=== PATIENT | female | born 1950 | race Caucasian/White ===

== ENCOUNTER 2016-08-01 10:25 | Inpatient (IN) | payer MEDICARE ==
[~2016-08-01] VITALS: Ht 160 cm; Wt 59.0 kg
[~2016-08-01 10:25] MED LIST: ATIVAN1 MG PO; BACLOFEN10 MG PO; BAYER CHEWABLE81 MG PO; BUPROPION HCL150 M1 PO; CATAPRES0.1 MG PO; COZAAR100 MG PO; EXCEDRIN CAPLET1 TAB PO; GABAPENTIN100 MG PO; GLIPIZIDE10 MG PO; GLUCERNA 1 CAL237 ML PO; GUAIFENESI100 MG/5 M PO; HYDROCODONE-APA1 TAB PO; IBUPROFEN100 MG/5 M PO; LACTINEX GRANUL1 PCK PEG; LANTUS INSULIN10 ML SC; MAXIPIME 1 GM/D51 G1 IV; METOPROLOL TART50 MG PO; MILK OF MAGNESI30 ML PO; MIRALAX17 GM PO; MUCINEX600 MG PO; PREDNISONE1 MG PO; VIBRAMYCIN 100100 M1 IV; VITAMIN D31000 UNI2 PO; ZOFRAN4 MG PO
[2016-08-01 11:28] LABS: BASOPHILS 0.2 % (0.0-2.0); EOSINOPHILS 0.2 % (0-7); HEMATOCRIT 40.5 % (36.0-48.0); HEMOGLOBIN 12.6 g/dL (12-16); IMMATURE GRANULOCYTES 0.3 % (0-5); LYMPHOCYTES 6.2 % (15-50); MCH 29.1 pg (26.0-34.0); MCHC 31.1 g/dL (31.0-37.0); MCV 93.5 fL (80.0-100.0); MONOCYTES 4.1 % (2-11); PLATELET COUNT 106 10x3/uL (130-400); RBC 4.33 10x6/uL (4.00-5.40); RDW 15.1 % (11.5-14.5); WBC 16.7 10x3/uL (4.8-10.8)
[2016-08-01 11:41] LABS: ALBUMIN 3.4 g/dL (3.4-5.0); ALKALINE PHOSPHATASE 72 U/L (46-116); ALT (SGPT) 23 U/L (10-68); BILIRUBIN - TOTAL 0.58 mg/dL (0.2-1.3); CALC OSMOLALITY 284 mosm/kg (275-300); CALCIUM 9.2 mg/dL (8.5-10.1); CARBON DIOXIDE 31.6 mmol/L (21.0-32.0); CHLORIDE - SERUM 102 mmol/L (98-107); CREATININE - SERUM 0.6 mg/dL (0.6-1.3); POTASSIUM - SERUM 3.7 mmol/L (3.5-5.1); PROTEIN - SERUM 6.9 g/dL (6.4-8.2); SODIUM 141 mmol/L (136-145); UREA NITROGEN 15 mg/dL (7-18); eGFR NON AFRICAN AMERICAN > 90 mL/min (90-120)
[2016-08-01 11:43] LABS: GLUCOSE 157 mg/dL (74-106); MAGNESIUM - SERUM 2.2 mg/dL (1.8-2.4)
[2016-08-01 11:57] LABS: APPEARANCE CLOUDY (CLEAR); BACTERIA MODERATE /hpf (NONE SEEN); BILIRUBIN NEGATIVE (NEGATIVE); COLOR YELLOW (YELLOW); GLUCOSE NEGATIVE (NEGATIVE); KETONE NEGATIVE (NEGATIVE); LEUKOCYTE ESTERASE TRACE (NEGATIVE); MUCUS <1+ /lpf (NONE SEEN); NITRITE POSITIVE (NEGATIVE); PROTEIN NEGATIVE (NEGATIVE); RED CELLS - URINE >50 /hpf (0-5); UROBILINOGEN NORMAL (NORMAL)
[2016-08-01 12:12] LABS: UDS - AMPHET NEGATIVE QUAL (NEGATIVE); UDS - BARB NEGATIVE QUAL (NEGATIVE); UDS - BENZO NEGATIVE QUAL (NEGATIVE); UDS - COCAINE NEGATIVE QUAL (NEGATIVE); UDS - METH NEGATIVE QUAL (NEGATIVE); UDS - OPIATE POSITIVE QUAL (NEGATIVE); UDS - PCP NEGATIVE QUAL (NEGATIVE); UDS - THC NEGATIVE QUAL (NEGATIVE)
[2016-08-01 16:27] VITALS: BP 116/67
--- NOTE | 2016-08-01 20:05 | NUR ---
RECIEVED PT LYING IN BED AWAKE, IV TO R WRIST INFILTRATED, DC'D WITH CATH INTACT, SISTER IN ROOM, CL IN REACH, DOOR OPEN FOR EASY VIEWING, WILL MONITOR
[2016-08-01] MEDS ORDERED: FEXOFENADINE H180 MG PO (20:32)
[2016-08-01] MEDS ORDERED: MIRALAX17 GM PO (20:34)
[2016-08-01] MEDS ORDERED: [UNRECOGNIZED DRUG - OTHER] PO (20:35)
[2016-08-01] MEDS ORDERED: [UNRECOGNIZED DRUG - OTHER] (20:36)
[2016-08-01] MEDS ORDERED: SALT (20:37)
[2016-08-01] MEDS ORDERED: LANTUS SOL100 UNIT/1 SQ (20:39)
[2016-08-01] MEDS ORDERED: DANTRIUM50 MG PO (20:42)
[2016-08-01] MEDS ORDERED: METOPROLOL TART50 MG PO (20:43)
[2016-08-01] MEDS ORDERED: HYDROCODONE-APA1 TAB PEG (20:47)
--- NOTE | 2016-08-01 21:32 | NUR ---
INSULING HELD PER SLIDING SCALE FOR BS OF 107, 22 G IV SITED IN L HAND X1 ATTEMPT, YONG WELL, CL IN REACH
--- NOTE | 2016-08-01 23:33 | NUR ---
PRN PAIN MED GIVEN PER MAR VIA PEG, YONG WELL, DENIES FURTHER NEEDS, CL IN REACH
--- NOTE | 2016-08-02 03:15 | NUR ---
RESTING WITH EYES CLOSED, RESP WITH EASE, NO ACUTE DISTRESS NOTED, SAFETY PRECAUTIONS IN PLACE, CL IN REACH
[2016-08-02 04:00] VITALS: BP 179/77
[2016-08-02 04:36] LABS: BASOPHILS 0.2 % (0.0-2.0); EOSINOPHILS 0.4 % (0-7); HEMATOCRIT 38.3 % (36.0-48.0); IMMATURE GRANULOCYTES 0.3 % (0-5); LYMPHOCYTES 11.4 % (15-50); MCH 29.3 pg (26.0-34.0); MCHC 31.3 g/dL (31.0-37.0); MCV 93.4 fL (80.0-100.0); MONOCYTES 10.1 % (2-11); NEUTROPHILS 77.6 % (40-80); PLATELET COUNT 117 10x3/uL (130-400); RDW 15.5 % (11.5-14.5); WBC 14.1 10x3/uL (4.8-10.8)
[2016-08-02 04:48] LABS: CALC OSMOLALITY 282 mosm/kg (275-300); CALCIUM 8.9 mg/dL (8.5-10.1); CARBON DIOXIDE 27.6 mmol/L (21.0-32.0); CHLORIDE - SERUM 103 mmol/L (98-107); CREATININE - SERUM 0.5 mg/dL (0.6-1.3); POTASSIUM - SERUM 3.5 mmol/L (3.5-5.1); SODIUM 142 mmol/L (136-145); UREA NITROGEN 13 mg/dL (7-18); eGFR NON AFRICAN AMERICAN > 90 mL/min (90-120)
[2016-08-02 04:56] LABS: GLUCOSE 104 mg/dL (74-106)
--- NOTE | 2016-08-02 07:40 | NUR ---
RECIEVED PT DURING WALKING ROUNDS. PT RESTING COMFORTABLY IN BED WITH NO COMPLAINTS OF PAIN OR DISCOMFORT AT THIS TIME. COMMUNICATIED WITH PT THROUGH LETTER BOARD. ASSESSMENT DONE PER FLOWSHEET. BED IN LOW POSITION AND CALL LIGHT WITHIN REACH. FAMILY AT BEDSIDE. WILL CONTINUE TO [facility].
--- NOTE | 2016-08-02 09:08 | NUR ---
POTASSIUM REPLACEMENT THERAPY GIVEN AT THIS TIME PER PROTOCOL. POTASSIUM SERUM REDRAW ORDERED AT THIS TIME.
[2016-08-02 10:20] VITALS: BP 156/76
--- NOTE | 2016-08-02 12:40 | NUR ---
SCD'S PLACED ON PT AT THIS TIME. FUNCTIONING PROPERLY.
[2016-08-02 13:50] VITALS: BP 183/87
[2016-08-02 14:33] VITALS: Ht 160 cm; Wt 59.0 kg
--- NOTE | 2016-08-02 14:58 | NUR ---
Patient Name: ZAC MONSIVAIS Admission Status: ER Accout number: [id number] Admission Date: 08-01-2016 : 1950 Admission Diagnosis: Attending: LISA Current LOS: 1 Anticipated DC Date: 08-06-2016 Planned Disposition: Nursing Facility ELMO Cert Primary Insurance: MEDICARE A & B Discharge Planning Comments: CM MET WITH PATIENT REGARDING D/C NEEDS AND PLANS. PATIENT SPELLS ANSWERS OUT WITH LETTER BOARD. PATIENT IS A RESIDENT AT [facility] FOR 19 YEARS AND WILL RETURN THERE AT DISCHARGE. PATIENTS PCP IS DR. SHAW AND PHARMACY IS IN HOUSE. PATIENT IS BEDFAST WITH [facility] FEEDINGS. CM WILL CONTINUE TO FOLLOW PATIENT WITH D/C NEEDS AND PLANS. PCP DR. SHAW IN HOUSE PHARMACY MARYBETH (SISTER) [phone] Dimensional Engineer: Eladia Byers Is the patient Alert and Oriented? Yes 0 * How many steps to enter\exit or inside your home? 0 0 * PCP DR. SHAW 0 * Pharmacy IN HOUSE AT [facility] 0 * Preadmission Environment [facility] Longterm 0 * Facility Name [facility] 0 * ADLs Total Dependent 0 * Other Equipment FACILITY EQUIPMENT , BEDFAST, SHOWER CHAIR 0 * List name and contact numbers for known caregivers / representatives who currently or will assist patient after discharge: MARYBETH (SISTER) [phone] 0 * Community resources currently utilized None 0 * Additional services required to return to the preadmission environment? Yes 0 * Can the patient safely return to the preadmission environment? Yes 0 * Has this patient been hospitalized within the prior 30 days at any hospital? No 0 Grand Total: 0
--- NOTE | 2016-08-02 16:50 | NUR ---
TUBE FEEDINGS STARTED PER ORDER AT THIS TIME.
[2016-08-02 16:58] VITALS: BP 150/75
--- NOTE | 2016-08-02 17:36 | NUR ---
QUIET IN ROOM DENIES ANY NEEDS RESP EVEN AND UNLABORED AT PRESENT.
--- NOTE | 2016-08-02 19:52 | NUR ---
RECIEVED PT LYING IN BED WATCHING TV, ASSESSMENT COMPLETED, NO ACUTE DISTRESS NOTED, TPN INFUSING VIA PEG, HOB ELEVATED, DENIES NEEDS, CL IN REACH
[2016-08-02 21:00] VITALS: BP 103/54
--- NOTE | 2016-08-02 21:57 | NUR ---
MEDS GIVEN PER MAR VIA PEG, NO RESIDUAL NOTED BEFORE OR AFTER, FLUSHED WITH 50CC H20, FEEDING RESUMED, HOB ELEVATED, CL IN REACH
--- NOTE | 2016-08-03 00:31 | NUR ---
PEG TUBE FEEDING INCREASED FROM 20CC/HR TO 30CC/HR PER ORDERS, HOB ELEVATED, YONG WELL, CL IN REACH
[2016-08-03 01:00] VITALS: BP 99/58
--- NOTE | 2016-08-03 03:59 | NUR ---
NORCO GIVEN FOR C/O BACK PAIN PER MAR, YONG WELL, DENIES FURTHER NEEDS, CL IN REACH
[2016-08-03 05:00] VITALS: BP 127/49
--- NOTE | 2016-08-03 06:05 | NUR ---
MEDS GIVEN PER MAR, NO INSULIN GIVEN FOR BS OF 145 PER SLIDING SCALE, DENIES NEEDS, CL IN REACH
[2016-08-03 06:31] LABS: BASOPHILS 0.3 % (0.0-2.0); HEMATOCRIT 35.8 % (36.0-48.0); HEMOGLOBIN 11.1 g/dL (12-16); IMMATURE GRANULOCYTES 0.5 % (0-5); LYMPHOCYTES 11.8 % (15-50); MCH 29.1 pg (26.0-34.0); MONOCYTES 11.4 % (2-11); PLATELET COUNT 125 10x3/uL (130-400); RBC 3.81 10x6/uL (4.00-5.40); RDW 15.8 % (11.5-14.5); WBC 10.6 10x3/uL (4.8-10.8)
[2016-08-03 06:51] LABS: CALC OSMOLALITY 274 mosm/kg (275-300); CALCIUM 8.5 mg/dL (8.5-10.1); CARBON DIOXIDE 28.9 mmol/L (21.0-32.0); CHLORIDE - SERUM 102 mmol/L (98-107); CREATININE - SERUM 0.5 mg/dL (0.6-1.3); GLUCOSE 136 mg/dL (74-106); SODIUM 136 mmol/L (136-145); UREA NITROGEN 15 mg/dL (7-18); eGFR NON AFRICAN AMERICAN > 90 mL/min (90-120)
[2016-08-03 08:22] VITALS: BP 134/75
--- NOTE | 2016-08-03 09:00 | NUR ---
ASSESSMENT PER FLOW SHEET.PT WITHOUT DISTRESS.DENIES NEEDS.CALL LIGHT IN REACH
[2016-08-03 11:47] VITALS: BP 120/82
--- NOTE | 2016-08-03 13:46 | NUR ---
08/03/2016 13:41 DCP: Discharge Planning Call placed to Kenisha with [facility] - they will accept patient back on IV Rocephin as long as its daily & patient has a line. Advised Rocephin is ordered daily for a total of 7 days. PICC/Mid line has been ordered and will be placed this afternoon. Plan to discharge tomorrow.
--- NOTE | 2016-08-03 15:11 | NUR ---
DENIES NEEDS,REMAINS WITHOUT DISTRESS.CALL LIGHT IN REACH
[2016-08-03 16:21] VITALS: BP 129/68
[2016-08-03 19:00] VITALS: BP 141/64
--- NOTE | 2016-08-03 19:35 | NUR ---
REMAINS WITHOUT NEEDS,WITHOUT CHANGE.CONT PLAN OF CARE
--- NOTE | 2016-08-03 19:55 | NUR ---
ASSESSMENT COMPLETED, NO DISTRESS NOTED, SAFETY MEASURES IN PLACE, CL IN REACH, WILL MONITOR
--- NOTE | 2016-08-03 20:15 | NUR ---
BEDDING CHANGED DUE TO INCONT, REPOSITIONED IN BED FOR COMFORT TO R SIDE, CL IN REACH
--- NOTE | 2016-08-03 20:58 | NUR ---
MEDS GIVEN PER MAR, NO RESIDUAL BEFORE OR AFTER, YONG WELL, HOB ELEVATED, CL IN REACH
--- NOTE | 2016-08-03 23:35 | NUR ---
RESTING WITH EYES CLOSED, RESP WITH EASE, NO DISTRESS NOTED, CL IN REACH
--- NOTE | 2016-08-04 01:00 | NUR ---
FEED RATE INCREASED TO 60CC/HR, RESTING WITH EYES CLOSED, NO DISTRESS NOTED, HOB ELEVATED, CL IN REACH
[2016-08-04 04:00] VITALS: BP 144/74
--- NOTE | 2016-08-04 04:53 | NUR ---
PRN NORCO GIVEN FOR BACK PAIN, YONG WELL, NO RESIDUAL NOTED BEFORE OR AFTER, 2 CANS GLUCERNA 1.0 ADDED TO FEEDING, DENIES OTHER NEEDS, CL IN REACH
[2016-08-04 05:22] LABS: BASOPHILS 0.3 % (0.0-2.0); HEMATOCRIT 33.7 % (36.0-48.0); HEMOGLOBIN 10.4 g/dL (12-16); IMMATURE GRANULOCYTES 0.3 % (0-5); LYMPHOCYTES 16.4 % (15-50); MCH 29.1 pg (26.0-34.0); MCHC 30.9 g/dL (31.0-37.0); MCV 94.1 fL (80.0-100.0); MONOCYTES 14.1 % (2-11); NEUTROPHILS 64.9 % (40-80); PLATELET COUNT 109 10x3/uL (130-400); RBC 3.58 10x6/uL (4.00-5.40); RDW 15.5 % (11.5-14.5)
[2016-08-04 05:36] LABS: CALCIUM 8.5 mg/dL (8.5-10.1); CARBON DIOXIDE 28.6 mmol/L (21.0-32.0); CHLORIDE - SERUM 104 mmol/L (98-107); CREATININE - SERUM 0.4 mg/dL (0.6-1.3); SODIUM 140 mmol/L (136-145); eGFR NON AFRICAN AMERICAN > 90 mL/min (90-120)
[2016-08-04 05:37] LABS: WBC 7.5 10x3/uL (4.8-10.8)
[2016-08-04 05:40] LABS: CALC OSMOLALITY 283 mosm/kg (275-300); GLUCOSE 202 mg/dL (74-106); UREA NITROGEN 11 mg/dL (7-18)
--- NOTE | 2016-08-04 05:52 | NUR ---
4 UNIT INSULIN GIVEN PER SLIDING SCALE ALONG WITH ROUTINE MEDS, YONG WELL, HOB ELEVATED, CL IN REACH
--- NOTE | 2016-08-04 07:50 | NUR ---
POSITIONED PT WITH PILLOW UNDER RIGHT SHOULDER FOR COMFORT. DENIES PAIN OR NEEDS. REMAINS CLEAN AND DRY AT THIS TIME. CALL LIGHT IN REACH AND DOOR REMAINS OPEN. WILL CONTINUE WITH PLAN OF CARE.
[2016-08-04 08:24] VITALS: BP 117/63
[2016-08-04] MEDS ORDERED: ROCEPHIN 1 GM/D51 G1 IV (09:23)
--- NOTE | 2016-08-04 10:30 | NUR ---
SCHEDULED MEDICATIONS ADMINISTERED AT THIS TIME WELL PRN NORCO-10 PER ORDER FOR PAIN. MEDS CRUSHED AND ADMINISTERED THROUGH FEEDING TUBE. RESIDUAL CHECKED AND THERE WAS NOT ANY, SO TUBE FEEDING INCREASED TO GOAL RATE OF 70 ML/HR. ASSESSMENT PERFORMED PER FLOWSHEET. RIGHT UPPER ARM MIDLINE PATENT AND IV ANTIBIOTIC INFUSIN PER ORDER. CALL LIGHT IN REACH, SCD'S ON AND IN WORKING ORDER. WILL CONTINUE WITH PLAN OF CARE.
--- NOTE | 2016-08-04 10:52 | NUR ---
CM REASSESSMENT NOTE: CM SPOKE WITH ANNALISE AT [facility] AND THEY ARE READY FOR PATIENT. PATIENT REC. IV ABX AT THIS TIME AND WHEN FINISHED- WILL D/C BACK TO [facility] BY AMBULANCE TO A SKILLED BED
--- NOTE | 2016-08-04 12:01 | NUR ---
REPORT CALLED TO KYLAH GUTIERREZ AT THIS TIME AT [facility].
--- NOTE | 2016-08-04 12:38 | NUR ---
DISCHARGED TO [place] VIA [facility] AT THIS TIME.
== END 2016-08-04 12:38 | DRG 690 ==
LOC: D.ER 10:25 → D.MS 12:53
PROVIDERS: Emergency Medicine; ADMIT Family Medicine
PROC: 05HB33Z Insertion of Infusion Device into Right Basilic Vein, Percutaneous Approach (ICD-10-PCS; principal; 2016-08-03)
PROC: B54MZZA Ultrasonography of Right Upper Extremity Veins, Guidance (ICD-10-PCS; 2016-08-03)
DX: N39.0 Urinary tract infection, site not specified (principal); I69.352 Hemiplegia and hemiparesis following cerebral infarction affecting left dominant side; I69.398 Other sequelae of cerebral infarction; G40.909 Epilepsy, unspecified, not intractable, without status epilepticus; B96.20 Unspecified Escherichia coli [E. coli] as the cause of diseases classified elsewhere; I10 Essential (primary) hypertension; K21.9 Gastro-esophageal reflux disease without esophagitis; J43.9 Emphysema, unspecified; E11.40 Type 2 diabetes mellitus with diabetic neuropathy, unspecified; Z79.84 Long term (current) use of oral hypoglycemic drugs; R51 Headache

== ENCOUNTER 2017-02-04 06:01 | Inpatient (IN) | payer MEDICARE ==
[2017-02-04] VITALS (13 sets, daily range): BP systolic 109–167; BP diastolic 67–102; BMI 23.9
[~2017-02-04] VITALS: Ht 160 cm; Wt 56.7 kg
--- NOTE | ~2017-02-04 | PRO ---
PATIENT:ZAC MONSIVAIS MEDICAL RECORD: [id number] : 52 LOCATION:D.[facility] [id number].2307 ADMISSION DATE: 02/04/17 PROCEDURE PERFORMED BY: BHARGAV TESFAYE MD PROCEDURE DATE: 02/04/17 DATE OF PROCEDURE: 02/06/2017 MEMBERSHIP ADVISOR: Bhargav Tesfaye MD. PROCEDURE: EGD. INDICATION: The patient is a 66-year-old white female with history of cerebral aneurysm, status post CVA about 20 years ago with subsequent dysphagia requiring PEG tube placement, was admitted with mental status changes and respiratory failure and recurrent sepsis. She also developed severe upper GI bleeding as noted with aspirate from her PEG tube. We have been giving her fresh frozen plasma and vitamin K and pack of blood cells for the past 12-18 hours. She had been on 3 pressors. She has underwent a code blue. She is now for EGD to try to determine the source of her bleeding. She is DNR. She is on a ventilator and on Diprivan at a low dose and is basically unresponsive. PREMEDICATION: None other than her Diprivan drip. INSTRUMENT: Olympus video gastroscope. FINDINGS: The endoscope was passed through the oropharynx to the second portion of the duodenum without difficulty. The exam was remarkable for a completely fresh blood filled stomach that could not be irrigated around. I have not seen any obvious source of bleeding anywhere, but it does not look like she had any esophageal varices or anything obvious like that. Again, I could not see anything at all and so this procedure was cut very short. The patient did tolerate the procedure, however. IMPRESSION: Complete blood filled stomach making visualization impossible. No obvious bleeding source was seen. RECOMMENDATIONS: I have discussed these findings with the family and they now want to proceed with comfort care only and not give her any more fresh frozen plasma, blood, platelets, etc. All were in agreement including her son. I discussed this with Dr. Lombardi as well. TRANSINT:[id number] Voice Confirmation ID: [id number] DOCUMENT ID: [id number] BHARGAV TESFAYE MD CC: [id number] DICTATION DATE: 02/06/17 1241 KIDS ACTIVITIES COACH: 02/06/171951 DIS IN 02/06/17 [facility] [address] [place] [address]
--- NOTE | ~2017-02-04 | CN ---
PATIENT NAME:ZAC MONSIVAIS MEDICAL RECORD: [id number] : 52 LOCATION:[id number] ADMIT DATE: 02/04/17 ACCOUNT: [id number] CONSULTING PHYSICIAN: BHARGAV BE MD REFERRING PHYSICIAN: ELO BUSTAMANTE DO DATE OF CONSULTATION: 02/05/2017 Gastroenterology Consultation REFERRING PHYSICIAN: Lucien Batista MD HISTORY OF PRESENT ILLNESS: The patient is a 66-year-old white female, who lives in the senior care, who has had a brain aneurysm with subsequent CVA and subsequent PEG tube placed, was admitted with mental status changes and respiratory distress. On admission, she developed some evidence of melena and blood seen in her PEG aspirate. I was asked to see the patient in this regard. Within an hours, she had decompensated and ended-up being intubated and actually underwent a code blue. She is now essentially unresponsive. Obviously, I cannot get any history from her. However, she apparently has no past history of any GI issues. It does not look like she has been on any blood thinners; however, INR is 3-1/2. Her platelet count is a little low at 50. Her hematocrit was 34 on admission, but it was 17 after withdrawn after CODE. PAST MEDICAL HISTORY: As above. She also has a history of seizures, diabetes, hypertension, COPD, depression and anxiety and her CVA. HOME MEDICATIONS: Apparently included aspirin, MiraLax, Catapres, Cozaar, Glucotrol, Neurontin, low dose prednisone, Wellbutrin, Ativan, Zofran, Excedrin, Buffy, insulin, Dantrium, Lopressor and [place]. FAMILY HISTORY: Unknown. SOCIAL HISTORY: The patient is a former smoker. She has no history of alcohol use. REVIEW OF SYSTEMS: Unobtainable. PHYSICAL EXAMINATION: GENERAL: Reveals a chronically ill appearing female, who is unresponsive and on a ventilator. VITAL SIGNS: She is on 2 pressors, her heart rate is 150, blood pressure is 110/70. CHEST: Clear anteriorly. HEART: Revealed tachycardia. ABDOMEN: Soft with PEG tube placed with stanislav blood seen in the PEG aspirate. Her abdomen is soft. EXTREMITIES: No edema. LABORATORY DATA: At present reveals a white cell count of 21,000, hematocrit 27 after 3 units of blood and platelet count is down to 38,000. She has a marked left shift. Her sodium is high at 156, potassium is 2.6, BUN 42, creatinine 1.8, CO2 of 16. Lactic acid is 27, calcium is 6, magnesium 1.7, total bilirubin 1.1, AST is 10,000, ALT 6000. Albumin 1.6. INR right now is 2.5. This is after 4 units of fresh frozen plasma and vitamin K. UA reveals bacteriuria. Blood cultures have been obtained. Urine culture is growing E. coli. CONSULT REPORT [id number] ZAC MONSIVAIS IMPRESSION: 1. 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 She is on Excedrin and aspirin, so I will have to be concerned about her erosive gastritis, peptic ulcer disease, etc. 2. Probable sepsis. 3. Metabolic acidosis. 4. History of cerebrovascular accident with PEG placement in the past for dysphagia. RECOMMENDATION: 1. Continue supportive care. 2. EGD once little more stable. 3. Continue with IV Protonix and transfuse packed red blood cells and fresh frozen plasma as needed. 4. I actually needed to correct her electrolytes. TRANSINT:[id number] Voice Confirmation ID: [id number] DOCUMENT ID: [id number] BHARGAV BE MD CC: LUCIEN BATISTA MD and ESTEFANIA LIND MD [id number] DICTATION DATE: 02/06/17 1212 ENGINEERING TECH: 02/06/17 1338 ADM IN [facility] [address] [place] [address]
--- NOTE | ~2017-02-04 | OP ---
PATIENT NAME: ZAC MONSIVAIS MEDICAL RECORD: [id number] :52 LOCATION:D.[facility] D.2307 ADMISSION DATE:02/04/17 SURGEON: CLAUS ZEPEDA MD OPERATION DATE: 02/04/17 DATE OF OPERATION: 02/05/2017 PREOPERATIVE DIAGNOSES: 1. Respiratory failure on the ventilator. 2. History of cerebrovascular accident with impaired functional motility. 3. Lobar pneumonia. 4. Diabetes mellitus. 5. Diabetic neuropathy. 6. Hypertension. 7. Emphysema. 8. Dysphagia requiring PEG tube placement. POSTOPERATIVE DIAGNOSES: 1. Respiratory failure on the ventilator. 2. History of cerebrovascular accident with impaired functional motility. 3. Lobar pneumonia. 4. Diabetes mellitus. 5. Diabetic neuropathy. 6. Hypertension. 7. Emphysema. 8. Dysphagia requiring PEG tube placement. PROCEDURE: Left subclavian vein triple-lumen central venous line placement. SURGEON: Claus Zepeda MD REPORT OF PROCEDURE: The patient's left chest was prepped and draped in sterile fashion. A needle was used to cannulate the left subclavian vein. The guidewire was advanced with ease. Over this wire, a dilator was placed followed by the triple lumen catheter. The catheter aspirated nonpulsatile dark blood and flushed easily in all 3 ports. This was sutured into place with 3-0 silk ties and dressed appropriately. COMPLICATIONS: None. CONDITION: Critical. ANESTHESIA: General endotracheal. BLOOD LOSS: Minimal. Procedure done at the bedside. TRANSINT:[id number] Voice Confirmation ID: [id number] DOCUMENT ID: [id number] OPERATIVE REPORT [id number] ZAC MONSIVAIS CLAUS ZEPEDA MD CC: [id number] DICTATION DATE: 02/05/17 1020 MIDDLEWARE DEVELOPER: 02/05/17 1040 ADM IN [facility] [address] [place] [address]
[~2017-02-04 06:01] MED LIST changes: +DANTRIUM50 MG PO; +FEXOFENADINE H180 MG PO; +HYDROCODONE-APA1 TAB PEG; +LANTUS SOL100 UNIT/1 SQ; +ROCEPHIN 1 GM/D51 G1 IV; +SALT; +[UNRECOGNIZED DRUG - OTHER]; +[UNRECOGNIZED DRUG - OTHER] PO
[2017-02-04 07:00] LABS: BASOPHILS 0.3 % (0-2); EOSINOPHILS 0.5 % (0-7); HEMATOCRIT 35.3 % (36.0-48.0); HEMOGLOBIN 11.1 g/dL (12-16); IMMATURE GRANULOCYTES 0.5 % (0-5); LYMPHOCYTES 8.6 % (15-50); MCH 28.3 pg (26.0-34.0); MCHC 31.4 g/dL (31.0-37.0); MCV 90.1 fL (80.0-100.0); MONOCYTES 10.3 % (2-11); NEUTROPHILS 79.8 % (40-80); PLATELET COUNT 159 10x3/uL (130-400); RBC 3.92 10x6/uL (4.00-5.40); RDW 15.3 % (11.5-14.5); WBC 25.7 10x3/uL (4.8-10.8)
[2017-02-04 07:12] LABS: ALBUMIN 3.3 g/dL (3.4-5.0); ALKALINE PHOSPHATASE 97 U/L (46-116); ALT (SGPT) 13 U/L (10-68); BILIRUBIN - TOTAL 0.37 mg/dL (0.2-1.3); CALCIUM 8.6 mg/dL (8.5-10.1); CARBON DIOXIDE 22.6 mmol/L (21.0-32.0); CHLORIDE - SERUM 99 mmol/L (98-107); CREATININE - SERUM 0.5 mg/dL (0.6-1.3); PROTEIN - SERUM 7.3 g/dL (6.4-8.2); SODIUM 134 mmol/L (136-145); UREA NITROGEN 33 mg/dL (7-18); eGFR NON AFRICAN AMERICAN > 90 mL/min (90-120)
[2017-02-04 07:19] LABS: CKMB 0.3 U/L (0.0-3.6); CREATINE KINASE 24 UL (21-215); PRO BNP 238 pg/mL (0-125)
[2017-02-04 07:25] LABS: CALC OSMOLALITY 285 mosm/kg (275-300); GLUCOSE 299 mg/dL (74-106); TROPONIN-I < 0.017 ng/mL (0.000-0.060)
[2017-02-04 07:38] LABS: AMORPHOUS SEDIMENT <1+ /lpf (NONE SEEN); APPEARANCE HAZY (CLEAR); BACTERIA MANY /hpf (NONE SEEN); BILIRUBIN NEGATIVE (NEGATIVE); COLOR STRAW (YELLOW); EPITHELIAL CELLS 0-5 /hpf (0-5); GLUCOSE 100 mg/dL (NEGATIVE); KETONE SMALL mg/dL (NEGATIVE); LEUKOCYTE ESTERASE TRACE (NEGATIVE); MUCUS <1+ /lpf (NONE SEEN); NITRITE NEGATIVE (NEGATIVE); PROTEIN NEGATIVE (NEGATIVE); RED CELLS - URINE 0-5 /hpf (0-5); UROBILINOGEN NORMAL (NORMAL); WHITE CELLS - URINE 0-5 /hpf (0-5)
[2017-02-04 11:54] LABS: KETONE - SERUM NEGATIVE (NEGATIVE)
--- NOTE | 2017-02-04 12:00 | NUR ---
PT ADMITTED TO ICU FROM ER. REPORT RECEIVED FROM CHARIS CERVANTES RN. ADMISSION ASSESSMENT AND HISTORY COMPLETED WITH PT SISTER DUE TO LANGUAGE BARRIER WITH HX OF CVA. PT ABLE TO EXPRESS NEEDS WITH COMMUNICATION BOARD AND ANSWER QUESTIONS APPROPRIATELY. COMPLETE ADMISSION COMPLETED. WILL BEGIN ICU CARE FOR PT PER ORDERS. O2 SAT STABLE AT THIS TIME ON 4L NC, BREATHING LABORED AND PT TACHYPNIC, DR IS AWARE.
[2017-02-04 12:01] LABS: MAGNESIUM - SERUM 1.8 mg/dL (1.8-2.4)
--- NOTE | 2017-02-04 14:00 | NUR ---
PT HAD LARGE BM. CLEANED UP AND COMPLETE LINEN CHANGE COMPLETE. PT REPOSITIONED IN BED DUE TO CONTRACTURES AND WEAKNESS. NO ACUTE CHANGES FROM PREVIOUS ASSESSMENT. WILL CONTINUE TO [facility]
--- NOTE | 2017-02-04 16:00 | NUR ---
I&O COLLECTED. PT STABLE WITH NO SIGNIGICANT CHANGES FROM PREVIOUS NOTE.
--- NOTE | 2017-02-04 17:56 | NUR ---
PT ASLEEP AT THIS TIME, APPEARS TO BE RESTING COMFORTABLY. WILL CONTINUE TO MONITOR FOR ANY ACUTE CHANGES
--- NOTE | 2017-02-04 19:00 | NUR ---
REPORT RECIEVED, INITIAL ASSESSMENT COMPLETE, PELASE SEE FLOW SHEETS FOR DETAILS. BM CLEANED UP, GOWN CHANGED, ORAL CARE, AND TURNING PROVIDED ATT. BM LARGE AND DARK IN COLOR. BED LOW AND LOCKED, CALL LIGHT IN REACH. SINUS TACH ON MONITOR, S1S2 AUSCULTATED. HX OF CVA, LEFT SIDE CONTRACTURES AND PARALYSIS, USES SIGN TO COMMUNICATE. WILL NOD AND SHAKE HEAD TO YES AND NO QUESTIONS. WILL CPOC.
--- NOTE | 2017-02-04 20:30 | NUR ---
C/O PAIN IN BACK, WILL GIVE PAIN MEDS PER ORDERS.
--- NOTE | 2017-02-04 21:00 | NUR ---
TURNING PROVIDED. TACHHYPNIC, TACHYCARDIC, HTN ALL NOTED AND NO SIGNIFICANT CHANGES SEEN. RESTING ATT. BED LOW AND LOCKED, CALL LIGHT IN REACH. WILL CPOC.
--- NOTE | 2017-02-04 23:06 | NUR ---
TURNING PROVIDED, REASSESSMENT COMPLETE, PLEASE SEE FLOW SHEETS FOR DETAILS. TACHYPNIA, TACHYCARDIA NOTED. BP STABLE. BED LOW AND LOCKED, CALL LIGHT IN REACH. WILL CPOC.
[2017-02-05] VITALS (74 sets, daily range): BP systolic 57–157; BP diastolic 20–118; Ht 160 cm; Wt 56.7 kg
--- NOTE | 2017-02-05 01:09 | NUR ---
SISTER AT BEDSIDE, PATIENT ASKED FOR MORE PAIN MEDS, THIS WAS GIVEN. NO OTHER NEEDS ATT. BED LOW AND LOCKED, CALL LIGHT IN REACH, WILL CPOC.
--- NOTE | 2017-02-05 03:00 | NUR ---
REASSESSMENT COMPLETE, PLEASE SEE FLOW SHEETS FOR DETAILS. COMMUNICATES THAT SHE CAN FEEL A MIGRAINE COMING ON, WANTS ME TO SEE IF I CAN GET HER OTC EXCEDRINE MIGRAINE FOR HER. WILL PAGE . REPOSITIONING PROVIDED. VSS, BED LOW AND LOCKED, CALL LIGHT IN REACH. WILL CPOC.
--- NOTE | 2017-02-05 03:53 | NUR ---
PAGED DR BATISAT AND SPOKE TO HIM FOR MIGRAINE MEDS FOR PATIENT. NEW ORDERS RECIEVED.
--- NOTE | 2017-02-05 04:00 | NUR ---
PROVIDED [facility], PATIENT VERY THANKFUL THROUGH HER BOARD. STILL WANTS SOME PAIN MEDICATION. WILL GIVE WHEN TIME ALLOTS. NO OTHER NEEDS ATT PER PT. WILL CPOC.
[2017-02-05 04:18] LABS: HEMATOCRIT 30.2 % (36.0-48.0); HEMOGLOBIN 9.6 g/dL (12-16); MCH 28.6 pg (26.0-34.0); MCHC 31.8 g/dL (31.0-37.0); MCV 89.9 fL (80.0-100.0); PLATELET COUNT 129 10x3/uL (130-400); RBC 3.36 10x6/uL (4.00-5.40); RDW 15.4 % (11.5-14.5); WBC 24.4 10x3/uL (4.8-10.8)
[2017-02-05 04:39] LABS: CALCIUM 8.1 mg/dL (8.5-10.1); CARBON DIOXIDE 23.5 mmol/L (21.0-32.0); CHLORIDE - SERUM 109 mmol/L (98-107); CREATININE - SERUM 0.5 mg/dL (0.6-1.3); SODIUM 144 mmol/L (136-145); eGFR NON AFRICAN AMERICAN > 90 mL/min (90-120)
[2017-02-05 04:41] LABS: CALC OSMOLALITY 292 mosm/kg (275-300); GLUCOSE 135 mg/dL (74-106); PHOSPHOROUS 1.4 mg/dL (2.5-4.9); UREA NITROGEN 24 mg/dL (7-18)
[2017-02-05 04:52] LABS: EOSINOPHILS 1 % (0-7); LYMPHOCYTES 7 % (15-50); MONOCYTES 10 % (2-11); NEUTROPHILS 78 % (40-80)
[2017-02-05 04:53] LABS: PLATELET ESTIMATE DECREASED
--- NOTE | 2017-02-05 04:59 | NUR ---
GAVE NORCO PER ORDER, PATIENT VERY THANKFUL. REPOSITIONED FOR COMFORT. SHE THEN ASKED FOR HER MOUTH SPRAY, THIS WAS PROVIDED. NO OTHER NEEDS ATT. WILL CPOC.
--- NOTE | 2017-02-05 05:15 | NUR ---
PT HR ALARM WENT OFF SO I WENT TO CHECK ON HER, HER HR WAS 149, WHEREAS IT WAS 110 AND HER RR 48-53 WHEREAS THEY WERE 24-26. SKIN PALE AND DIAPHORETIC, COULD NOT HOLD UP HER HAND TO POINT TO BOARD TO COMMUNICATE. BLOOD NOTED COMING OUT OF PEG TUBE, MODERATE AMOUNT DUE TO THE FACT THAT THE BAG WAS JUST EMPTIED FOR I&O'S TWO HOURS AGO AND APPROX 60-80ML IN BAG AND TOTAL SHIFT BEFORE HAND WAS 60ML OF BROWN DRAINAGE. CALLED CHARGE NURSE INTO ROOM AND SHE AGREED THAT THE MD SHOULD BE NOTIFIED. WILL PAGE AND UPDATE.
--- NOTE | 2017-02-05 05:30 | NUR ---
PAGED DR BATISTA, HE RETURNED CALL, INFORMED HIM OF PATIENT STATUS, HE ORDERED EKG, CARDIAC ENZYMES, A CT OF THE HEAD AND TO CLAMP OFF PEG TUBE. WILL FOLLOW ORDERS AND CLOSELY MONITOR PATIENT.
--- NOTE | 2017-02-05 06:15 | NUR ---
DR LIND RETURNED CALL, ORDERED 4L NC.
[2017-02-05 06:29] LABS: CKMB 1.2 U/L (0.0-3.6); CREATINE KINASE 30 UL (21-215); TROPONIN-I 0.025 ng/mL (0.000-0.060)
--- NOTE | 2017-02-05 06:42 | NUR ---
PAGED DR LIND
--- NOTE | 2017-02-05 07:15 | NUR ---
REC'ED REPORT FROMOUT GOING RN - PT LYING SUPINE IN BED - TACHYPNIC - ASSESSMENT COMPLETE CPOC
--- NOTE | 2017-02-05 08:00 | NUR ---
CHANGE IN VS - TACKYCARDIA WITH HYPOTENSION - RESPIRATORY AT BEDSIDE TO OBTAIN ABG (4 STICKS) - H/H 02/04 - NOTIFIED DR. LIND - ORDER TO GIVE 2 AMPS BICARB - CHANGE NS TO D5 WITH 3 AMPS BICARB AT 150 ML/HR GIVE LEVOFED TO TITRATE B/P - SEE MAR RT AT BEDSIDE - BAGGING PT - CRASH CART AT BEDSIDE - CALL ANESTHESIA TO INTUBATE PT.
--- NOTE | 2017-02-05 08:54 | NUR ---
CCRN, DAIRY NUTRITIONIST - SPOKE TO FAMILY TO DISCUSS PLACING PT ON VENT - FAMILY APPROVED [facility] VENTALTION - DAIRY NUTRITIONIST VENTALATED PT. PT TOLERATED PROCEDURE WELL CPOC
--- NOTE | 2017-02-05 09:00 | NUR ---
PAGED DR. MORENO TO PLACE CENTRAL LINE - SPOKE TO MD - MD AGREED TO PROCEDURE -
--- NOTE | 2017-02-05 09:30 | NUR ---
PAGED DR. GRIGSBY DUE TO TACHYCARDIA AND LOW B/P - DR. GRIGSBY AGREED TO CONSULT.
--- NOTE | 2017-02-05 09:30 | NUR ---
DR. LIND ORDERED ABG 30 MINUTES AFTER INTUBATION - NOTIFED RT OF ORDER
--- NOTE | 2017-02-05 09:30 | NUR ---
CENTRAL LINE PLACED - AWAITING XRAY
--- NOTE | 2017-02-05 09:46 | NUR ---
X-RAY FOR PLACEMENT OF OOT AND CENTRAL LINE - 1000 NOTIFIED BOTH LINES ARE IN CORRECT LOCATION INFORMED RT - STARTED IV MEDICATIONS TO CENTRAL LINE CPOC
--- NOTE | 2017-02-05 10:15 | NUR ---
DR. LIND ORDERED GI CONSULT - PAGED DR. STRAUSS - DR. LIND ORDERD PROTONIC DRIP AND CBC, AND 2 UNITS PRBS
--- NOTE | 2017-02-05 10:28 | NUR ---
DR. PERAZA ON UNIT - ORDERD PROTONIX IV DRIP AND 2 UNITS PRBC - CALLED POA (SON) - REC'D VERBAL CONSENT TO GIVE PRBCs - WITNESSED BY RN (KEVIN SOLORZANO) TYPE AND CROSS ORDERED - CALLED BLOOD BANK FOR STAT T&C. CPOC
--- NOTE | 2017-02-05 11:00 | NUR ---
ASSESSMENT COMPLETE - CONTINUE TO TITRATE LEVOFED PER POLICY
--- NOTE | 2017-02-05 11:02 | NUR ---
CLEANED PT CHANGED LINENS - WHILE TURNING PT STARTED MOVING HER LUE - (RESTAINTS IN PLACE) STARTED PROPORFOL PER ORDER - TYPE AND CROSS LABS DRAWN - AWIATING BLOOD BANK TO CALL WITH PRBC
--- NOTE | 2017-02-05 12:08 | NUR ---
CODE BLUE CALLED - CHEST COMPRESSIONS - IV PUSH MEDS GIVEN - SEE CRASH LOG -
--- NOTE | 2017-02-05 12:19 | NUR ---
Nutrition Consult: Consult received to start TF when pt is medically stable. Pt is intubated and sedated at this time. Spoke with RN - pt is not stable enough at this time to begin TF. RD stated that the order would be entered so that when pt is stable TF can begin. RN agreed. Will put order in to begin TF when pt is stable and ok with MD; Start TF of Pulmocare @ 10 ml/hr. Advance 10 ml every 6-8 hours as tolerated to goal rate of 40 ml/hr. Water flushes 25 ml/hr. RD will continue to monitor pt progress.
--- NOTE | 2017-02-05 12:20 | NUR ---
1ST OF TWO UNITS PRBC GIVEN - CPOC
--- NOTE | 2017-02-05 12:25 | NUR ---
INFORMED DR. LIND PT IS MAXED ON LEFOVED TITRATION - SEE ORDERS: INCREASE IV FLUID - D5 WITH 3 AMPS BICARB TO 200 ML/HOUR. TITRATE DOPAMINE TO INCREASE BLOOD PRESSURE CPOC
--- NOTE | 2017-02-05 12:27 | NUR ---
DR. LIND ORDERED INCREASE OF D5 WITH 3 AMPS BICARB TO 200ML/HR
--- NOTE | 2017-02-05 12:27 | NUR ---
NOTIFIED DR. LIND - LEVOFED MAXED AT 30MCG - INSTRUCTED TO TITRATE DOPAMINE PER POLICY
[2017-02-05 13:00] LABS: INR 3.13 (0.85-1.17); MCHC 30.5 g/dL (31.0-37.0); MCV 95.2 fL (80.0-100.0); PLATELET COUNT 119 10x3/uL (130-400); PROTIME 32.5 SECONDS (11.6-15.0); RDW 15.8 % (11.5-14.5); WBC 22.6 10x3/uL (4.8-10.8)
--- NOTE | 2017-02-05 13:00 | NUR ---
DR. LIND CONSULTED DR. STRAUSS - DR. LIND SPOKE TO DR. STRAUSS TO DISCUSS PLAN OF CARE - THIS RN SPOKE TO DR. STRAUSS ORDERS REC'ED TO OBTAIN H/H EVERY FOUR HOURS FOR 24 HOURS. GIVE ONE UNIT PRBC IF HCT LESS THAN 28 - CALL MD IF ABNORMAL GIVE TWO UNITS PRBC IF HCT LESS THAN 26 - CALL MD IF ABNORMAL OBTAIN BUN EVERY 4 HOURS - CALL MD IF ABNORMAL OBTAIN PT/INR CALL MD IF GREATER THAN 1-2 LAVAGE G-TUBE TO RUN TILL CLEAR - EVERY 4 HOURS HOLD ASPRIN AND LOVENOX FOR NOW. GIVE 80MG PROTONIX IV PUSH GIVE PROTONIX DRIP CONTINIOUS AFTER PUSH CPOC
--- NOTE | 2017-02-05 13:00 | NUR ---
SPOKE TO DR. BATISTA - REVIEWED CRITICAL LABS RBC 1.86 H/H 17.7/5.4.
[2017-02-05 13:01] LABS: BASOPHILS 0.3 % (0-2); EOSINOPHILS 0.2 % (0-7); IMMATURE GRANULOCYTES 4.9 % (0-5); LYMPHOCYTES 11.9 % (15-50); MONOCYTES 14.4 % (2-11); NEUTROPHILS 68.3 % (40-80)
[2017-02-05 13:02] LABS: HEMATOCRIT 17.7 % (36.0-48.0); HEMOGLOBIN 5.4 g/dL (12-16); RBC 1.86 10x6/uL (4.00-5.40)
--- NOTE | 2017-02-05 14:00 | NUR ---
CONTINUE TO TITRATE PRESSORS - SEE FLOW SHEET
--- NOTE | 2017-02-05 15:00 | NUR ---
POA - SON - AGREED TO CHANGE FROM FULL CODE TO DNR - WITNESSED BY DAMPER MAKER CONTINUE TO TITRATE PRESSORS
--- NOTE | 2017-02-05 15:00 | NUR ---
ASSESSMENT COMPLETE - CONTINUE TO TITRATE PRESSORS - CPOC
--- NOTE | 2017-02-05 15:00 | NUR ---
FAMILY AT BEDSIDE - DISCUSSED PT GRIMICING - DISCUSSES STARTING PROPROFOL FOR COMFORT VS. LOW B/P - FAMILY AGREED TO PROPROFOL TO KEEP PT CALM. POA (SON) AT BEDSIDE - CHANGED CODE STATUS TO DNR - SEE CHART CPOC
--- NOTE | 2017-02-05 16:00 | NUR ---
I&Os COMPLETE - CPOC
[2017-02-05 16:06] LABS: WBC 27.6 10x3/uL (4.8-10.8)
[2017-02-05 16:07] LABS: HEMATOCRIT 33.5 % (36.0-48.0); HEMOGLOBIN 10.8 g/dL (12-16); MCH 30.5 pg (26.0-34.0); MCHC 32.2 g/dL (31.0-37.0); MCV 94.6 fL (80.0-100.0); PLATELET COUNT 127 10x3/uL (130-400); RBC 3.54 10x6/uL (4.00-5.40); RDW 14.8 % (11.5-14.5)
[2017-02-05 16:08] LABS: BASOPHILS 0.4 % (0-2)
--- NOTE | 2017-02-05 18:00 | NUR ---
CONTINUE TO TITRATE PRESSORS - WATER LAVAGED G-TUBE TILL CLEAR PER MD ORDERED - FAMILY AT BEDSIDE ANSWERED ALL QUESTIONS - CPOC
--- NOTE | 2017-02-05 18:55 | NUR ---
REPORT RECIEVED, INITAL ASSESSMENT COMPLETE, PLEASE SEE FLOW SHEETS FOR DETAILS. ON VENT AND SEDATED, ON PRESSORS AND BEING TITRATED. GTUBE TO GRAVITY AND BEING FLUSHED 24H WITH WATER. BRADFORD TO GRAVITY. PUPILS 4MM AND FIXED. NO REACTIONS TO VERBAL OR TACTILE STIMULI, DOES NOT FOLLOW COMMANDS. TACHYCARDIA NOTED ON MONITOR, S1S2 AUSCULTATED. LUNGS WITH CRACKLES THROUGHOUT AND DIMINISHED IN LOWER LOBES. CURRENT FSBS WAS 454 ACCORDING TO PREVISOUS SHIFT RN, SHE PAGED AND TALKED TO DR BATISTA, HE WANTED THE 28 UNITS GIVEN PER PROTOCOL AND A RECHECK IN ONE HOUR. RIGHT RADIAL PULSE PALP, LEFT BRACHIAL DOPPLERED, RIGHT FOOT DOPPLERED AND LEFT FOOT ABSENT. CAP REFIL >3SECONDS. WILL CPOC.
[2017-02-05 19:54] LABS: HEMATOCRIT 33.4 % (36.0-48.0); HEMOGLOBIN 10.7 g/dL (12-16); MCH 30.2 pg (26.0-34.0); MCV 94.4 fL (80.0-100.0); PLATELET COUNT 131 10x3/uL (130-400); RBC 3.54 10x6/uL (4.00-5.40); RDW 14.7 % (11.5-14.5); WBC 28.6 10x3/uL (4.8-10.8)
[2017-02-05 19:55] LABS: BASOPHILS 0.2 % (0-2)
--- NOTE | 2017-02-05 20:16 | NUR ---
FSBS [id number] PAGED MD
--- NOTE | 2017-02-05 20:19 | NUR ---
SPOKE WITH DR BATISTA, HE WANTS HER BICARB DRIP TO BE CHANGED TO 3 MEQ WITH NS, ALSO TO GIVE 20 UNITS OF INSULIN.
--- NOTE | 2017-02-05 21:00 | NUR ---
ORAL CARE AND TURNING PROVIDED. WILL CPOC.
--- NOTE | 2017-02-05 21:38 | NUR ---
SPOKE TO PROCESS LABORATORY SPECIALIST R/T CBC AND PT/INR NOT ENTERED Q4H. REENTERED ORDERS PER MD REQUEST
--- NOTE | 2017-02-05 22:00 | NUR ---
150ML FLUSH PUSHED THROUGH GTUBE INTO STOMACH.
[2017-02-05 22:28] LABS: HEMATOCRIT 27.1 % (36.0-48.0); HEMOGLOBIN 9.2 g/dL (12-16); LYMPHOCYTES 11.8 % (15-50); MCHC 33.9 g/dL (31.0-37.0); MCV 91.2 fL (80.0-100.0); NEUTROPHILS 80.7 % (40-80); PLATELET COUNT 111 10x3/uL (130-400); RBC 2.97 10x6/uL (4.00-5.40); RDW 14.7 % (11.5-14.5); WBC 28.2 10x3/uL (4.8-10.8)
--- NOTE | 2017-02-05 22:29 | NUR ---
RECIEVED CRITICAL LABS, WILL FOLLOW SET PROTOCOLS. ORDERING 1 UNIT PRBC.
--- NOTE | 2017-02-05 23:00 | NUR ---
REASSESSMENT COMPLETE, PLEASE SEE FLOW SHEETS FOR DETAILS. TITRATING MEDS PER PROTOCOL, BED LOW AND LOCKED. WILL CPOC.
[2017-02-05 23:21] LABS: HEMATOCRIT 25.5 % (36.0-48.0); HEMOGLOBIN 8.7 g/dL (12-16); LYMPHOCYTES 11.6 % (15-50); MCH 31.5 pg (26.0-34.0); MCHC 34.1 g/dL (31.0-37.0); MCV 92.4 fL (80.0-100.0); NEUTROPHILS 78.8 % (40-80); PLATELET COUNT 105 10x3/uL (130-400); RBC 2.76 10x6/uL (4.00-5.40); RDW 14.7 % (11.5-14.5); WBC 28.3 10x3/uL (4.8-10.8)
[2017-02-05 23:40] LABS: INR 5.72 (0.85-1.17); PROTIME 52.6 SECONDS (11.6-15.0)
--- NOTE | 2017-02-05 23:47 | NUR ---
RECIEVED CRITIAL LABS, PAGED DR BATISTA. SPOKE WITH DR BATISTA, INFORMED HIM OF CRITICAL HIGH PT, INR, AND OF QUICK CHANGE IN H&H, SAID GIVE ONE UNIT PRBC, AND TWO UNITS FFP.
[2017-02-06] VITALS (57 sets, daily range): BP systolic 68–164; BP diastolic 21–109
--- NOTE | 2017-02-06 00:35 | NUR ---
BP DROPPING, 56/31, MAXED ON LEVOPHED AND DOPAMINE TITRATING UP WITH HR 145, PAGING DR LIND FOR UPDATE AND WILL AWAIT ORDERS.
--- NOTE | 2017-02-06 01:00 | NUR ---
ORAL CARE AND TURNING PROVIDED. FLUSHED G TUBE WITH 60 ML WATER. TITRATING MEDS, MONITORING CLOSELY, PRBC INFUSING ATT. BED LOW AND LOCKED. WILL CPOC.
--- NOTE | 2017-02-06 01:20 | NUR ---
DR LIND CALLED BACK, GAVE UPDATE, INFORMED OF HR 150'S 160'S AND BP UP AND DOWN, TRYING TO TITRATE WITH DOPAMINE AND DIPRIVAN, DR LIND STATED TO LEAVE DIPRIVAN AT 15 MCG AND TITRATE BP WITH DOPAMINE LEVOPHED MAXED OUT AND TO NOT WORRY ABOUT THE HEART RATE ATT.
--- NOTE | 2017-02-06 02:00 | NUR ---
STARTED FFP UNIT 1 OF 2
--- NOTE | 2017-02-06 02:26 | NUR ---
FFP UNIT 1 OF 2 FINISHED.
--- NOTE | 2017-02-06 02:33 | NUR ---
UNIT 2 OF 2 FFP STARTED.
--- NOTE | 2017-02-06 02:51 | NUR ---
UNIT 2 OF 2 FFP FINISHED.
--- NOTE | 2017-02-06 03:00 | NUR ---
REASSESSMENT COMPLETE, PLEASE SEE FLOW SHEETS FOR DETAILS. TITRAITING LEVOPHED, DOPAMINE, AND DIPRIVAN PER ORDERS. ORAL CARE AND TURNING PROVIDED. BED LOW AND LOCKED, WILL CPOC.
[2017-02-06 03:55] LABS: HEMATOCRIT 23.5 % (36.0-48.0); HEMOGLOBIN 8.1 g/dL (12-16); LYMPHOCYTES 17.4 % (15-50); MCH 30.8 pg (26.0-34.0); MCHC 34.5 g/dL (31.0-37.0); NEUTROPHILS 79.4 % (40-80); RBC 2.63 10x6/uL (4.00-5.40); RDW 14.9 % (11.5-14.5)
[2017-02-06 03:56] LABS: MCV 89.4 fL (80.0-100.0); PLATELET COUNT 55 10x3/uL (130-400); WBC 18.9 10x3/uL (4.8-10.8)
--- NOTE | 2017-02-06 03:57 | NUR ---
RECIEVED CRITICAL LABS, PLTS 55, HCG 8 AND HCT 23. NNAMDI SINGH.
[2017-02-06 04:15] LABS: APTT 53.4 SECONDS (22.8-39.4)
[2017-02-06 04:26] LABS: INR 3.44 (0.85-1.17); PROTIME 35.1 SECONDS (11.6-15.0)
[2017-02-06 04:30] LABS: BILIRUBIN - TOTAL 1.17 mg/dL (0.2-1.3); MAGNESIUM - SERUM 1.7 mg/dL (1.8-2.4)
[2017-02-06 04:31] LABS: CREATININE - SERUM 1.8 mg/dL (0.6-1.3); PHOSPHOROUS 4.5 mg/dL (2.5-4.9)
[2017-02-06 04:32] LABS: ALBUMIN 1.6 g/dL (3.4-5.0); ANION GAP 36.3 mmol/L (8-16); CARBON DIOXIDE 16.3 mmol/L (21.0-32.0); POTASSIUM - SERUM 2.6 mmol/L (3.5-5.1); PROTEIN - SERUM 4.3 g/dL (6.4-8.2)
--- NOTE | 2017-02-06 04:43 | NUR ---
PAGED AND THEN SPOKE TO DR BE. RECIEVED NEW ORDERS. WILL CPOC.
--- NOTE | 2017-02-06 06:15 | NUR ---
MONITORING PATIENT, TITRATING MEDS AND ADMINISTERING MEDICATIONS. PT TOLERATING WELL. WILL CPOC.
[2017-02-06 07:48] LABS: HEMATOCRIT 27.3 % (36.0-48.0); HEMOGLOBIN 9.3 g/dL (12-16); MCH 30.3 pg (26.0-34.0); MCHC 34.1 g/dL (31.0-37.0); MCV 88.9 fL (80.0-100.0); RBC 3.07 10x6/uL (4.00-5.40); RDW 14.3 % (11.5-14.5)
[2017-02-06 07:49] LABS: PLATELET COUNT 38 10x3/uL (130-400)
[2017-02-06 07:52] LABS: INR 2.56 (0.85-1.17); PROTIME 27.7 SECONDS (11.6-15.0)
[2017-02-06 08:33] LABS: EOSINOPHILS 1 % (0-7); LYMPHOCYTES 14 % (15-50); MONOCYTES 1 % (2-11); NEUTROPHILS 50 % (40-80); PLATELET ESTIMATE DECREASED; PLATELET MORPHOLOGY GIANT PLTS PRESENT
[2017-02-06 12:44] LABS: HEMATOCRIT 36.4 % (36.0-48.0); HEMOGLOBIN 12.5 g/dL (12-16); MCH 30.8 pg (26.0-34.0); MCHC 34.3 g/dL (31.0-37.0); MCV 89.7 fL (80.0-100.0); RBC 4.06 10x6/uL (4.00-5.40); RDW 14.3 % (11.5-14.5)
[2017-02-06 12:45] LABS: BASOPHILS 0.6 % (0-2); EOSINOPHILS 0.2 % (0-7); IMMATURE GRANULOCYTES 1.3 % (0-5); LYMPHOCYTES 17.2 % (15-50); MONOCYTES 5.8 % (2-11); NEUTROPHILS 74.9 % (40-80); PLATELET COUNT 30 10x3/uL (130-400)
[2017-02-06 12:50] LABS: INR 2.9 (0.85-1.17); PROTIME 30.6 SECONDS (11.6-15.0)
--- NOTE | 2017-02-06 13:08 | NUR ---
1226-GROSS COPIOUS FRESH RED BLOOD OOZING AND FLOWING FROM MOUTH. ATTEMPT TO DO EDG ABORTED BY DR. BE SHORTLY AFTER ATTEMPTING TO INTUBATE ESOPHAGUS. ORAL SUCTION PROVIDED. BLEEDING STROPPED SHORTLY AFTER SCOPE REMOVED.
--- NOTE | 2017-02-06 14:42 | NUR ---
0700 RECEIVED PT IN BED, CRITICALLY ILL ON VENT, HR ELEVATED 150'S ON LEVOPHED AND DOPAMINE, BP STABLE DOPAMINE TITRATED DOWN. BLOOD INFUSING. SEE ASSESMENT. 0800 REVEIVED CALL FROM LAB FOR CRITIAL PLT OF 38, CALLED NO NEW ORDERS AT HIS TIME, HCT 27.3 1 UPRBC GIVEN 0930 LINENS CHANGED AND BATH GIVEN, LARGE AMOUNT OF BLOOD PURED FROM MOUTH AFTER BATH, LINENS CHANGED AGAIN. 1200 GI DOCTOR IN UNIT FOR EGD, EDG ATTEMPTED UNABLE TO GAIN VISUAL FIELD DUE TO LARGE AMOUNT OF BLOOD, SPOKE WITH FAMILY WHO WISHED NOT TO DO ANYTHING ELSE. 1245 FAMILY IN UNIT AND STATED THEY WANTED TERMINAL EXTUBATION AND ALL MEDICATIONS TURNED OFF TO JUST KEEP HER COMFORTABLE 1300 PAGED UROLOGY PHYSICIAN AND HE RETURNED CALL APPROX 1320 RELAYED WISHES TO HIM FROM FAMILY, HE STATED HE WOULD ENTER ORDERS, 1330 ALL IVF'S TURNED OFF, 1345 MORPHINE GIVEN 1410 PT WAS ASYSTOLE ON MONITOR AND RT PULLED ETT. 1415 FAMILY GOTTEN FROM WAITING ROOM, ALL QUESTIONS ANSWERED AND PAPERWORK COMPLETED, ALL MDS NOTIFED, PULM. IN UNIT TO PRONOUNCE, ALICIA CALLED AND GROSS HOME TO BE NOTIFIED AFTER PT CLEANED
--- NOTE | 2017-02-07 10:36 | NUR ---
Per CMS protocol, restraint report logged into data base.
== END 2017-02-06 15:30 | DRG 871 ==
LOC: D.ER 06:01 → D.ICU 11:50
PROVIDERS: Emergency Medicine; Family Medicine; Internal Medicine Gastroenterology; ADMIT Family Medicine
PROC: 5A09357 Assistance with Respiratory Ventilation, Less than 24 Consecutive Hours, Continuous Positive Airway Pressure (ICD-10-PCS; 2017-02-04)
PROC: 0T9B70Z Drainage of Bladder with Drainage Device, Via Natural or Artificial Opening (ICD-10-PCS; 2017-02-04)
PROC: 0D9670Z Drainage of Stomach with Drainage Device, Via Natural or Artificial Opening (ICD-10-PCS; 2017-02-04)
PROC: 05H633Z Insertion of Infusion Device into Left Subclavian Vein, Percutaneous Approach (ICD-10-PCS; principal; 2017-02-05)
PROC: 0BH17EZ Insertion of Endotracheal Airway into Trachea, Via Natural or Artificial Opening (ICD-10-PCS; 2017-02-05)
PROC: 5A1945Z Respiratory Ventilation, 24-96 Consecutive Hours (ICD-10-PCS; 2017-02-05)
PROC: 0DJ08ZZ Inspection of Upper Intestinal Tract, Via Natural or Artificial Opening Endoscopic (ICD-10-PCS; 2017-02-06)
DX: A41.9 Sepsis, unspecified organism (principal); J96.01 Acute respiratory failure with hypoxia; J18.1 Lobar pneumonia, unspecified organism; K72.00 Acute and subacute hepatic failure without coma; J69.0 Pneumonitis due to inhalation of food and vomit; E87.2 Acidosis; I69.954 Hemiplegia and hemiparesis following unspecified cerebrovascular disease affecting left non-dominant side; D62 Acute posthemorrhagic anemia; N39.0 Urinary tract infection, site not specified; J44.0 Chronic obstructive pulmonary disease with (acute) lower respiratory infection; K92.2 Gastrointestinal hemorrhage, unspecified; D68.2 Hereditary deficiency of other clotting factors; J98.11 Atelectasis; E87.1 Hypo-osmolality and hyponatremia; N17.9 Acute kidney failure, unspecified; D68.9 Coagulation defect, unspecified; B96.89 Other specified bacterial agents as the cause of diseases classified elsewhere; D69.6 Thrombocytopenia, unspecified; S90.932A Unspecified superficial injury of left great toe, initial encounter; X58.XXXA Exposure to other specified factors, initial encounter; I10 Essential (primary) hypertension; E11.40 Type 2 diabetes mellitus with diabetic neuropathy, unspecified; Z79.4 Long term (current) use of insulin; I46.9 Cardiac arrest, cause unspecified; E87.6 Hypokalemia; Z78.1 Physical restraint status; I69.991 Dysphagia following unspecified cerebrovascular disease; R56.9 Unspecified convulsions; Z74.09 Other reduced mobility; K21.9 Gastro-esophageal reflux disease without esophagitis; F41.9 Anxiety disorder, unspecified; F32.9 Major depressive disorder, single episode, unspecified; Z87.891 Personal history of nicotine dependence; T17.990A Other foreign object in respiratory tract, part unspecified in causing asphyxiation, initial encounter